=== PATIENT | female | born 1955 | race Caucasian/White ===

== ENCOUNTER 2016-10-11 09:36 | Emergency (ER) | payer MEDICARE, OTHER ==
[~2016-10-11] VITALS: Ht 157.5 cm; Wt 89.1 kg
[2016-10-11 09:46] VITALS: BP 168/91; PULSE 62; RESP 18; O2SAT 99
--- NOTE | 2016-10-11 11:07 | ED.REPORT ---
HPI-General Illness Date of Service Oct 11, 2016 ED Provider: Jovany Lester MD 60 year old female with a history of HTN presents to the ER via EMS accompanied by her complaining of dizziness and weakness upon awakening this morning. Associated symptom of diaphoresis. She has been ill with symptoms of sore throat, productive cough, and congestion for the past week. Patient was seen at urgent care at symptom onset and prescribed a course of antibiotics. Currently she denies shortness of breath, dizziness, lightheadedness, chest pain , vomiting, and abdominal pain. Nursing Notes Stated Complaint: DIZZINESS,WEAK Chief Complaint: General Complaint Nursing Notes Reviewed: Yes Allergies: Coded Allergies: No Known Allergies (Unverified Allergy, Unknown, 09/15/14) Scheduled Azithromycin (Zithromax (Z-Tavo)) 250 Mg Tablet 250 MG PO DIRECTED Take two tablets by mouth on day 1, then take one tablet daily on days 2 through 5. Prednisone (PredniSONE) 20 Mg Tablet 40 MG PO DAILY General Time Seen by MD: 11:07 Chief Complaint Dizziness, Weakness Hx Obtained From: Patient, Spouse Arrived By: Ambulance Past Medical History Past Medical History Anxiety Depression Hepatitis C HTN diverticulosis Reports: Hypertension Past Surgical History Reports: Smoking History Never Smoker Social History Alcohol Use: "Social" Drug Use: Denies drug use Ambulatory Status Independent Review of Systems Full Review of Systems Constitutional: Reports: Weakness - generalized, Denies: Chills, Fever Ears / Nose / Throat: Reports: Nasal congestion Respiratory: Reports: Prod cough, clear, Denies: Shortness of breath Cardiovascular: Denies: Chest pain GI: Denies: Abdominal pain, Nausea, Vomiting Allergy / Immune: Denies: Rhinorrhea Neurologic: Reports: Dizziness, Lightheaded, Shaking, Denies: Change LOC, Confusion, Focal weakness, Headache, Syncope Complete sys rev & neg: except as marked. Physical Exam Vital Signs Vital Signs Date Time Temp Pulse Resp B/P Pulse Ox O2 Delivery O2 Flow Rate FiO2 10/11/16 13:25 68 12 154/80 98 Room Air 10/11/16 12:06 68 12 154/80 98 Room Air 10/11/16 11:41 61 18 99 Room Air 10/11/16 09:46 36.1 62 18 168/91 99 Initial VS: Reviewed Head / Eyes: Atraumatic, Normocephalic Neck: Supple, Non-tender, Full range of motion Abdomen / GI: Soft, Non-tender, No guarding, No rebound, No distention Extremities: Vascular intact, Neuro intact, No swelling, No tenderness Skin: Warm, Dry, No cyanosis Neurologic: Alert, Oriented, Nonfocal General/Constitutional: Awake, Alert, Well developed, Well nourished Respiratory / Chest: No chest tenderness, No chest wall deformity Wheezing / Retractions: Positive: Wheezing moderate (bilaterally) Coarse breath sounds bilaterally. Cardiovascular: Heart rate NL, Regular rhythm, Heart sounds NL, Cap refill not delayed, Peripheral circulation NL Interpretation & Diagnostics X-Ray Chest Interpretation Chest Xray Interpretation: IMPRESSION: No acute cardiopulmonary disease. Dictated by: Haven Lehman M.D. on 10/11/2016 at 12:19 Approved by: Haven Lehman M.D. on 10/11/2016 at 12:20 View: Portable, 1 view Interpretation / Wet Read by: Interpret - Radiologist Re-Eval/Medical Decision Med Decision/Clinical Course Bronchitis. Will treat with steroid course and azithromycin. Return precautions given. Source of Hx: Old records Time of Eval: 12:54 Re-Evaluation/Progress Note: Discussed lab and radiology results and plan to discharge. She is amenable to the plan. Return precautions given. All other questions addressed. Counseled Regarding: Diagnosis, Lab results, Need for follow-up, When/why to return to ED Discharge & Departure Primary Impression: Bronchitis Disposition: Home Discharge Condition All VS Reviewed: Yes Condition: Stable Patient Instructions: Acute Bronchitis (DC) Additional Instructions: I am reassured by your workup today. Your chest x-ray and lab results were not indicative of any life-threatening condition. Take Azithromycin for your symptoms; 2 tabs on the first day, and 1 tab every day for the next 4 days. Take one steroid every day for the next 5 days. Use your home inhalers as needed for shortness of breath. Return to the ER if you develop worsening or concerning symptoms. Follow-up with your primary care provider in the next 1-2 days. Referrals: OTHER,PHYSICIAN (PCP) (Family) Scribe Attestation Portions of this note were transcribed by Josué Cabrera. I, Dr. Lester, personally performed the history, physical exam and medical decision-making; I reviewed and confirmed the accuracy of the information in the transcribed note. Signed by: Mauro Gonzalez, 10/11/2016 - 12:55 Jovany Lester MD Oct 11, 2016 11:07 JOSUÉ CABRERA Oct 11, 2016 11:27
[2016-10-11] MEDS ORDERED: Albuterol 2.5 mg/3 mL Inhalation Solution NEB ONE (11:30)
[2016-10-11 11:41] VITALS: PULSE 61; RESP 18; O2SAT 99
[2016-10-11 12:06] VITALS: BP 154/80; PULSE 68; RESP 12; O2SAT 98
--- NOTE | 2016-10-11 12:21 | DRSVH ---
PROCEDURE: X-RAY CHEST ONE VIEW, PORTABLE ([id number]) INDICATIONS: cough TECHNIQUE: One view of the chest was acquired. COMPARISON: [facility], CR, CHEST 2VW, 08/10/2008, 14:10. FINDINGS: Surgical changes and devices: None. Lungs and pleura: No pleural effusions or pneumothorax. Lungs are clear. Mediastinum: Mediastinal contours appear normal. Heart size is normal. Bones and chest wall: No suspicious bony lesions. Overlying soft tissues appear unremarkable. IMPRESSION: No acute cardiopulmonary disease. Dictated by: Haven Lehman M.D. on 10/11/2016 at 12:19 Approved by: Haven Lehman M.D. on 10/11/2016 at 12:20
[2016-10-11] MEDS ORDERED: PRE20 PO (13:11)
[2016-10-11] MEDS ORDERED: AZIT250T4 PO (13:11)
[2016-10-11 13:25] VITALS: BP 154/80; PULSE 68; RESP 12; O2SAT 98
== END 2016-10-11 13:12 | disposition home or self-care (01) ==
LOC: SED 09:36
DX: J40 Bronchitis, not specified as acute or chronic (principal); J02.9 Acute pharyngitis, unspecified; R09.81 Nasal congestion; R61 Generalized hyperhidrosis; I10 Essential (primary) hypertension
CPT/HCPCS: 71010; 94664; 99284; J7613